=== PATIENT | male | born 1985 | race Caucasian/White ===

== ENCOUNTER 2018-03-24 19:55 | Emergency (ER) | payer SELFPAY ==
[~2018-03-24] VITALS: Ht 180.3 cm; Wt 74.8 kg
[2018-03-24] MEDS ORDERED: NKM (20:03)
[2018-03-24 20:10] VITALS: BP 125/80
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
[2018-03-24] MEDS ORDERED: Norco 5mg/325mg tab ORAL ONE (20:30)
--- NOTE | 2018-03-24 20:36 | NUR ---
ED Nurse Note: pt seen by hannah. po norco given, pt tolerated well. pt went to ct with tech.
[2018-03-24] MEDS ORDERED: IBUPROFEN600 MG ORAL (21:38)
[2018-03-24] MEDS ORDERED: NORCO 5-325 TA1 EACH ORAL (21:38)
--- NOTE | 2018-03-24 21:54 | NUR ---
ED Nurse Note: Pt has seen by Dr. Baltazar, all orders carried out. CT done of right arm and head, Meds given, slin applied to right arm. Pt is ready for Discharge. D/C instruction and Prescription given to Pt and verbalized understanding. ID band removed. Pt d/c from ED with steady gait. Accompanied by his Family.
--- NOTE | 2018-03-25 09:23 | Diagnostic Imaging Report ---
Indication: Cervical spine pain Technique: Spiral acquisitions obtained through the cervical spine. No IV contrast utilized. Multiplanar reconstructions were generated. Total dose length product 1759.54 mGycm. CTDIvol(s) 70.38,13.41 mGy. Dose reduction achieved using automated exposure control. Comparison: none Findings: Bony alignment is normal. The vertebral body heights are preserved. There is fragmentation of the inferior aspect of the anterior arch of C1 in the midline, but the fragments appear well-corticated. No evidence of acute fracture. No dislocations. At C4-5, there is mild narrowing of the right neural foramen due to facet arthrosis. No significant disc bulge or protrusion, spinal stenosis, or left sided neural foraminal narrowing. At C5-6, there is a large central posterior osteophyte which may impinge slightly on the anterior aspect of the cord. The neural foramina are preserved. At C6-7, there is a central posterior osteophyte with associated central broad-based disc protrusion. This may impinge slightly on the anterior aspect of the cord. There is minimal right neural foraminal stenosis at this level. At the remaining disc levels, no significant disc bulge or protrusion, spinal stenosis, or neural foraminal stenosis. Impression: No acute bony trauma Mild multilevel degenerative changes as described This agrees with the preliminary interpretation provided overnight by [facility]. The CT scanner at [facility] is accredited by the [employer] and the scans are performed using protocols designed to limit radiation exposure to as low as reasonably achievable to attain images of sufficient resolution adequate for diagnostic evaluation.
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
--- NOTE | 2018-03-25 09:38 | Diagnostic Imaging Report ---
Clinical Indication: Reason For Exam: PAIN Technique: Spiral acquisitions obtained through the chest. No IV contrast utilized, reason not stated. Multiplanar reconstructions generated. Total dose length product 980.38 mGycm. CTDIvol(s) 23.08 mGy. Dose reduction achieved using automated exposure control Comparison: none Findings: There is a comminuted fracture of the midshaft clavicle on the right. There is a comminuted fracture of the scapula which is incompletely included but does involve the glenoid fossa. There is a nondisplaced fracture of the posterior medial right rib gas bubbles are seen in the right shoulder region. The sternum appears intact. The thoracic spine appears intact. No pneumothorax demonstrated. The lungs are clear except for minimal posterior dependent atelectatic changes. No evidence of retrosternal hematoma. The heart is normal in size. No mediastinal or hilar mass or adenopathy. No pericardial effusion. No axillary or chest wall mass or adenopathy. There is a small sliding-type hiatal hernia. The included upper abdominal viscera appears unremarkable. Impression: Positive for comminuted right scapular fracture, incompletely included Positive for comminuted right midshaft clavicular fracture Probable nondisplaced posterior medial right third rib fracture Negative for pneumothorax Posterior dependent pulmonary atelectatic changes This agrees with the preliminary interpretation provided overnight by [facility]. The CT scanner at [facility] is accredited by the [employer] and the scans are performed using protocols designed to limit radiation exposure to as low as reasonably achievable to attain images of sufficient resolution adequate for diagnostic evaluation.
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
== END 2018-03-24 21:54 | disposition home or self-care (01) ==
LOC: EMR 20:40
DX: S42.001A Fracture of unspecified part of right clavicle, initial encounter for closed fracture (principal); S42.111A Displaced fracture of body of scapula, right shoulder, initial encounter for closed fracture; S09.90XA Unspecified injury of head, initial encounter; V28.0XXA Motorcycle driver injured in noncollision transport accident in nontraffic accident, initial encounter; Y92.89 Other specified places as the place of occurrence of the external cause; S22.31XA Fracture of one rib, right side, initial encounter for closed fracture
CPT/HCPCS: 70450; 71250; 72125; 99284